=== PATIENT | male | born 1975 | race Caucasian/White ===

== ENCOUNTER 2024-10-04 06:55 | Emergency (ER) | payer BC, SELFPAY ==
--- OUTSIDE RECORDS SUMMARY | 2023-06-11 05:55 | XMS_ITS ---
Author Organization The [facility] in [place] Address [address] [place] [address] Care Team Providers Care Porcelain Enameling Supervisor Name Role Phone Adán Tapia Primary Care Provider [phone] ARTIE TAPIA Unavailable [phone] Encounters Encounter Location Date Provider Diagnosis [facility] [address] [facility] [place] [address] 06/11/2023 ARTIE TAPIA Plan Of Treatment No Information Progress Notes * Letha GRIFFINhDOB: 7 (48 yo M)Acc No.[id number]:06/11/2023 Patient: Jayson RAY :1975 A ge:48 Y S ex:Male Address:[address] [address] * true * Date: Generated for Tonya barlow/Emerita/eTransmitting on: 0 10/04/2024 07:15 AM EDT
--- OUTSIDE RECORDS SUMMARY | 2023-11-12 04:30 | XMS_ITS ---
Author Organization The [facility] in [place] Address [address] [place] [address] Care Team Providers Care Finishing And Shipping Supervisor Name Role Phone Adán Germain Primary Care Provider [phone] REASON FOR VISIT Annual Encounters Encounter Location Date Provider Diagnosis [facility] [address] [facility] [place] [address] 11/12/2023 Adán Germain Plan Of Treatment No Information Progress Notes * Letha JUDDhDOB: 7 (49 yo M)Acc No.[id number]:11/12/2023 UNLOCKED PROGRESS NOTE Progress Note Patient: Jayson RAY Provider: Geraldo Germain MD (TTC) :1975 A ge:48 Y S ex:Male Date:11/12/2023 [address] Subjective: * Chief Complaints: * 1 . Annual. * Medical History: Objective: * Vitals: Assessment: Plan: * Treatment: * * Electronic signature of Adán Germain MD, [id number] on 10/04/2024 at 07:14 AM EDT Sign off status: Pending Visit Status: N /S N/C (No Show/No Charge) * Provider: Geraldo Germain MD (TTC) Date: 0 11/12/2023 Generated for Printi ng/Faxing/eTransmitting on: 10/04/2024 07:14 AM EDT
--- OUTSIDE RECORDS SUMMARY | 2024-06-06 11:17 | XMS_ITS ---
Author Organization The [facility] in [place] Address [address] [place] [address] Care Team Providers Care Supervisor Ore Dressing Name Role Phone Adán Germain Primary Care Provider REASON FOR VISIT advair refill Medications Medication SIG (Take, Route, Frequency, Duration) Notes Start Date End Date Status Advair Diskus 250-50 MCG/ACT 1 puff Inhalation Twice a day for 90 days 06/08/2023 Active Encounters Encounter Location Date Provider Diagnosis [facility] [address] [facility] [place] [address] 06/06/2024 Adán Jessa Plan Of Treatment Medication Medication Name Sig Start Date Stop Date Notes Advair Diskus 250-50 MCG/ACT 1 puff Inha lation Twice a day for 90 days 06/08/2023 Progress Notes * Letha GRIFFINhDOB: 7 (49 yo M)Acc No.[id number]:06/06/2024 Patient: Refugio JAIMEMarcos SEARSneth :1975 A ge:49 Y S ex:Male Address:[address] [place] [address] * Refills Refill Advair Diskus Aerosol Powder Breath Activated, 250-50 MCG/ACT, Inhalation, 3, 1 puff, Twice a day, 90 days, Refills=3 * true * Date: Generated for Printi ng/Faxing/eTransmitting on: 0 10/04/2024 07:14 AM EDT
[2024-10-04 07:04] VITALS: BP 156/100; PULSE 64; TEMP 36.8; O2SAT 99; BMI 29.8
--- OUTSIDE RECORDS SUMMARY | 2024-10-04 07:15 | XMS_ITS | Clinical Summary ---
Author Organization [facility] Address [address] [place], [place] [address] Care Team Providers Care Caster Investment Casting Name Role Phone Ubaldo Germain MD Primary Care Provider [phone] Allergies No known active allergies Medications alprazolam(XANA X 0.25 MG TAB) Take one(1) tablet daily. 0 02/22/2009 Active fluticasone/sofya meterol(ADVAIR DISKUS 250 MCG-50 MCG/DOSE FOR INHALATION) once daily 0 02/22/2009 Ac tive ALBUTEROL 90 MCG/ACTUATION AEROSOL INHALER rescue inhaler - rare use 0 02/22/2009 Active Social History Tobacco Use Types Packs/Day Years Used Date Smoking Tobacco: Never Assessed Sex and Gender Information Value Date Recorded Sex Assigned at Not on file Legal Sex Male 8:26 AM EST Gender Identity Not on file Sexual Orientation Not on file Last Filed Vital Signs Vital Sign Reading Time Taken Comments Blood Pressure 97/45 02/27/2009 10:47 AM EST Pulse 63 02/27/2009 10:47 AM EST Temperature - - Respiratory Rate 14 02/27/2009 10:4 7 AM EST Oxygen Saturation 100% 02/27/2009 10: 47 AM EST Inhaled Oxygen Concentration - - Weight 83.9 kg (184 lb 15.5 oz) 02/27/2009 6:55 AM EST Height 170.2 cm (5' 7 ) 02/22/2009 11:0 0 AM EST Body Mass Index 28.97 02/22/2009 11:00 AM EST Plan of Treatment Health Maintenance Due Date Last Done Comments Anxiety Screening 1995 Depression Screening 1995 HIV Screening 1995 Hepatitis C Screening 1995 DTaP,Tdap,Td Vaccine (1 - Tdap) 01/16/1996 Hepatitis B Vaccine (1 of 3 - 19+ 3-dose series) 01/15 Lipid Screening 01/16/2012 CT Colonography 2022 Cologuard (FIT-DNA) 2022 Colonoscopy 2022 Colorectal Cancer Screening 2022 Diabetes Screening 2022 Fecal Occult Blood 2022 Sigmoidoscopy 2022 Influenza Vaccine (#1) 2024 Medical Devices Implanted Type Area Lining Cleaner Device Identifier Shelf Expiration Date Model / Serial / Lot Lens Iol 1pc Lorena Sn60at 22.5 - [id number] Implanted:Qty : 1 on 02/27/2009 at [facility] Intraocular Lens Left: Eye [employer] 11/16/2013 SN60AT 22.5 / [id number] / Care Teams Caster Investment Casting Relationship Specialty Start Date End Date Ubaldo Germain MD [address] [place] [address] PCP - General 02/27/09
--- OUTSIDE RECORDS SUMMARY | 2024-10-04 07:15 | XMS_ITS | Patient Health Record ---
Author Organization The [facility] in [place] Address [address] [place] [address] Care Team Providers Care Hardwood Finisher Name Role Phone JessaAdán Primary Care Provider Allergies No Known Allergies Reason For Referral No Information Medications Medication SIG (Take, Route, Frequency, Duration) Notes Start Date End Date Status Advair Diskus 250-50 MCG/ACT 1 puff Inhalation Twice a day for 90 days 06/08/2023 Active Tadalafil (PAH) 20 MG 1 tablet Orally Q 3 days max for 90 days 06/08/2023 Active Social History Tobacco Use: Social History Observation Description Date Details (start date - stop date) Current Smoker 02/16/2001 - NA Tobacco Use/Smoking Question Answer Notes Patient is a current smoker When did you start smoking? 02/16/2001 How often do you smoke cigarettes? every day How many cigarettes a day do you smoke? 6-10 How soon after you wake up do you smoke your fir st cigarette? after 60 minutes Are you interested in quitting? Not ready to soraya t Alcohol Screen (Audit-C) Question Answer Notes Did you have a drink contain ing alcohol in the past year? Yes How often did you have 6 or more drinks on one occasion in the past year? Monthly or less (1 point) How many drinks did you have on a typical day when you were drinking in the past year? 3 or 4 drinks (1 point) How often did you have a dri nk containing alcohol in the past year? Weekly (3 points) Points 5 Interpretation Positive Problems Problem Type SNOMED Code ICD Code Onset Dates Problem Status W/U Status Risk Notes Problem Asthma (399094148) Asthma (J45.909) Active confirmed Problem Insomnia (776193981) Insomnia (G47.00) Active confirmed Problem Erectile dysfunction (643773742) Erectile dysfunction (N52.9) Active confirmed Problem Alcohol abuse (62316865) Alcohol abuse (F10.10) Active confirmed Problem Well adult (282387581) Well adult (Z00.00) Active confirmed Problem Seasonal allergic rhinitis (757800060) Seasonal rhinitis (J30.2) Active confirmed Problem Overweight (924090759) Over weight (E66.3) Active confirmed Problem Closed fracture of clavicle (87966025) Fracture of clavicle, left, closed (S42.002A) Active confirmed Encounters Encounter Location Date Provider Diagnosis [facility] [address] [place] [address] 06/06/2024 Adán Germain Plan Of Treatment No Information Insurance Providers Payer Name Payer Address Payer Phone Subscriber Number Group Number Insured Name Patient Relationship to Insured Coverage Start Date Coverage End Date [employer] PPO PLUS LOCAL PLAN [address] [place] [phone] [id number] Jayson Griffin Self - patient is the insured Medical (General) History Medical History History ICD Code Over weight E66.3 Fracture of clavicle, left, closed S42.0 02A Erectile dysfunction N52.9 Insomnia G47.00 Alcohol abuse F10.10 Asthma J45.909 Seasonal rhinitis J30.2 fracture nasal bone Surgical History Surgery Date(Month/Year) internal fixation left clavical 09/2019 Right leg surgery
--- OUTSIDE RECORDS SUMMARY | 2024-10-04 07:15 | XMS_ITS | Clinical Summary ---
Author Organization [facility] Address [address] [place] [address] Care Team Providers Care Legal Contracts Specialist Name Role Phone Unavailable Primary Care Provider Unavailabl e Social History Tobacco Use Types Packs/Day Years Used Date Smoking Tobacco: Never Assessed Sex and Gender Information Value Date Recorded Sex Assigned at Not on file Legal Sex Male 6:50 PM EDT Gender Identity Not on file Sexual Orientation Not on file Last Filed Vital Signs Vital Sign Reading Time Taken Comments Blood Pressure 136/82 03/15/2019 12:00 PM EST Pulse - - Temperature - - Respiratory Rate - - Oxygen Saturation - - Inhaled Oxygen Concentration - - Weight 81.6 kg (180 lb) 03/15/2019 12:00 PM EST Height 170.2 cm (5' 7 ) 03/15/2019 12:00 PM EST Body Mass Index 28.19 03/15/2019 12:00 PM EST Plan of Treatment Not on file Insurance [facility]
--- NOTE | 2024-10-04 07:24 | XR_ITS ---
The [address] [address] Patient Name: NAUN JUDD MRN: [id number] date: 1975 Sex: M Assigned Patient Location: ER Current Patient Location: ER Accession/Order Number: [id number] Exam Date: 10/04/2024 08:22 Report Date: 10/04/2024 08:25 At the request of: ALAN FARMER MD Procedure: XR hand LT min 3V XR hand LT min 3V 10/04/2024 7:41 AM SIGNS AND SYMPTOMS: metal suspected at 2 Metacarpo phalangeal joint PROTOCOL: Frontal, lateral, and oblique radiographs of the left hand COMPARISON: None FINDINGS: Periarticular calcification is noted along the distal interphalangeal joint of the left second digit. Mild soft tissue swelling is noted in the second. There is mild narrowing of the distal interphalangeal joints greatest at the second digit. There is an 8 mm linear radiodense foreign body along the dorsal aspect of the head of the second metacarpal. There is evidence of a remote ulnar styloid fracture. XR/XR hand LT min 3V IMPRESSION: There is an 8 mm linear radiodense foreign body along the dorsal aspect of the head of the second metacarpal. Mild soft tissue swelling is noted in the second digit. Impression dictated by: Robby Mancini M.D. 10/04/2024 8:25 AM Dictation Location: [place] [address] Electronically authenticated by: [id number] Y Date: 10/04/2024 08:25
--- NOTE | 2024-10-04 08:59 | XR_ITS ---
The [address] [address] Patient Name: NAUN JUDD MRN: [id number] date: 1975 Sex: M Assigned Patient Location: ER Current Patient Location: ER Accession/Order Number: [id number] Exam Date: 10/04/2024 09:47 Report Date: 10/04/2024 09:48 At the request of: ALAN FARMER MD Procedure: XR hand LT 2V XR hand LT 2V 10/04/2024 9:28 AM SIGNS AND SYMPTOMS: ^psot foreign body removal PROTOCOL: Frontal and lateral radiographs of the left hand COMPARISON: 10/04/2024 FINDINGS: There has been interval removal of a linear radiodense foreign body along the dorsal aspect of the head of the second metacarpal. There is soft tissue swelling in the second digit. Similar degenerative changes are noted in the distal interphalangeal joints. No acute bony injury. XR/XR hand LT 2V IMPRESSION: There has been interval removal of a linear radiodense foreign body along the dorsal aspect of the head of the second metacarpal. Impression dictated by: Robby Mancini M.D. 10/04/2024 9:48 AM Dictation Location: [place] [address] Electronically authenticated by: [id number] Y Date: 10/04/2024 09:48
[2024-10-04] MEDS: LIDOCAINE HCL 1% 100 MG/10 ML MDV INJ (09:05)
[2024-10-04] MEDS: DIPHTH,PERTUSS(ACELL),TET VAC 0.5 ML SYRINGE IM (09:06)
--- NOTE | 2024-10-04 09:31 | ED.GENADUL1 ---
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 Patient tetanus booster is more than 5 years old and he did try to get the foreign body out by needle and it did not help Related Data Previous Rx's ?Medication ?Instructions ?Recorded doxycycline hyclate 100 mg tablet 100 mg PO BID 7 days #14 tabs 10/04/24 Allergies Allergy/AdvReac Type Severity Reaction Status Date / Time No Known Drug Allergies Allergy Verified 10/04/24 07:04 Opioid HPI Opioid Management Most Recent Opioid Data: Last Pain Scale 6 Today, 07:09 Review of Systems ROS Status of ROS 10 or more systems reviewed and unremarkable except as noted in history and below PFSH PFSH Social History Little interest or pleasure in doing things: not at all Feeling down, depressed, or hopeless: not at all Exam Narrative Exam Narrative: Nurses notes and vital signs reviewed and patient is not hypoxic. General: Well-appearing and in no apparent distress. Skin: Warm, dry, no pallor noted. No rash. Left hand examination: The patient has swelling in the area and mild erythema in the left hand mostly at the metacarpophalangeal joint of the second finger and there is a swelling in the area that is spreading to the rest of the dorsal aspect of the hand No vascular injury detected no obvious infection at the moment although there is inflammation Constitutional Vital Signs, click to edit/add: Last Vital Signs Temp 98.2 F 10/04/24 07:04 Pulse 64 10/04/24 07:04 Resp 20 10/04/24 07:04 BP 156/100 H 10/04/24 07:04 Pulse Ox 99 10/04/24 07:04 O2 Del Method Room Air 10/04/24 07:04 Course Vital Signs Vital signs: Vital Signs Temperature 98.2 F 10/04/24 07:04 Pulse Rate 64 10/04/24 07:04 Respiratory Rate 20 10/04/24 07:04 Blood Pressure 156/100 H 10/04/24 07:04 Pulse Oximetry 99 10/04/24 07:04 Oxygen Delivery Method Room Air 10/04/24 07:04 Temperature 98.2 F 10/04/24 07:04 Pulse Rate 64 10/04/24 07:04 Respiratory Rate 20 10/04/24 07:04 Blood Pressure 156/100 H 10/04/24 07:04 Pulse Oximetry 99 10/04/24 07:04 Oxygen Delivery Method Room Air 10/04/24 07:04 Medical Decision Making MDM Narrative Medical decision making narrative: After taking x-ray initially it did show that the patient have a almost 8 mm foreign body After using the ultrasound I was able to locate the foreign body I was able after infiltrating the area with almost 2 cc of 1% lidocaine with no epinephrine and using the ultrasound I was able to open almost longitudinal 2 mm opening just above the foreign body and I was able to flush it out After that sutures placed on the opening 2 stitches and 5-0 Prolene suture line used The patient to remove the stitches after 5 to 7 days also was instructed about monitoring symptoms specially with the high risk of infection due to the fact that it was foreign body for prolonged time and he was provided with a tetanus booster The patient discharged home with doxycycline prescription for the next 7 days The patient is to follow up with primary care physician in next 2-3 days or to return to the emergency department should any of the signs or symptoms worsen or new symptoms develop. The patient agrees with the following Diagnosis and Treatment plan and the patient will be discharged home. Discharge Plan Discharge Chief Complaint: Skin/Abscess/Foreign Body Clinical Impression: Foreign body hand, Hand swelling Patient Disposition: Home, Self-Care Time of Disposition Decision: 10:04 Condition: Good Mode of Transportation: Private Vehicle Prescriptions / Home Meds: New doxycycline hyclate 100 mg tablet 100 mg PO BID 7 Days Qty: 14 0RF Print Language: Syriac Instructions: Care For Your Stitches (DC), Laceration (ED) Additional Instructions: Stitches to be removed after 5 to 7 days Referrals: Ubaldo Germain MD [Primary Care Provider, Family Practice] - 1 week Discharge Date/Time: 10/04/24 10:10
== END 2024-10-04 10:10 | disposition home or self-care (01) ==
PROVIDERS: Emergency Provider Emergency Medicine; PCP Family Medicine
DX: S60.552A Superficial foreign body of left hand, initial encounter (principal); Z23 Encounter for immunization; M25.442 Effusion, left hand
CPT/HCPCS: 10120; 73120; 73130; 90471; 99284

== ENCOUNTER 2024-10-25 09:41 | Outpatient (OUT) | payer BC, SELFPAY ==
--- OUTSIDE RECORDS SUMMARY | 2023-06-11 05:55 | XMS_ITS ---
Author Organization The [facility] in [place] Address [address] [place] [address] Care Team Providers Care Push Connector Assembler Name Role Phone Adán Tapia Primary Care Provider ARTIE TAPIA Unavailable [phone] Encounters Encounter Location Date Provider Diagnosis [facility] [address] [place] [address] 06/11/2023 ARTIE TAPIA Plan Of Treatment No Information Progress Notes * Letha GRIFFINhDOB: 7 (48 yo M)Acc No.[id number]:06/11/2023 Patient: Jayson RAY :1975 A ge:48 Y S ex:Male Address:[address] [address] * true * Date: Generated for Tonya barlow/Emerita/eTransmitting on: 0 10/25/2024 09:45 AM EDT
--- OUTSIDE RECORDS SUMMARY | 2023-11-12 04:30 | XMS_ITS ---
Author Organization The [facility] in [place] Address [address] [place] [address] Care Team Providers Care Maltster Name Role Phone Adán Germain Primary Care Provider [phone] REASON FOR VISIT Annual Encounters Encounter Location Date Provider Diagnosis [facility] [address] [facility] [place] [address] 11/12/2023 Adán Germain Plan Of Treatment No Information Progress Notes * Letha JUDDhDOB: 7 (49 yo M)Acc No.[id number]:11/12/2023 UNLOCKED PROGRESS NOTE Progress Note Patient: Jayson RAY Provider: Geraldo Germain MD (TTC) :1975 A ge:48 Y S ex:Male Date:11/12/2023 [address] Subjective: * Chief Complaints: * 1 . Annual. * Medical History: Objective: * Vitals: Assessment: Plan: * Treatment: * * Electronic signature of Adán Germain MD, [id number] on 10/25/2024 at 09:44 AM EDT Sign off status: Pending Visit Status: N /S N/C (No Show/No Charge) * Provider: Geraldo Germain MD (TTC) Date: 0 11/12/2023 Generated for Printi ng/Faxing/eTransmitting on: 10/25/2024 09:44 AM EDT
--- OUTSIDE RECORDS SUMMARY | 2024-06-06 11:17 | XMS_ITS ---
Author Organization The [facility] in [place] Address [address] [place] [address] Care Team Providers Care Patient Office Rep Name Role Phone Adán Germain Primary Care Provider REASON FOR VISIT advair refill Medications Medication SIG (Take, Route, Frequency, Duration) Notes Start Date End Date Status Advair Diskus 250-50 MCG/ACT 1 puff Inhalation Twice a day for 90 days 06/08/2023 Active Encounters Encounter Location Date Provider Diagnosis [facility] [address] [facility] [place] [address] 06/06/2024 Adán Jessa Plan Of Treatment Medication Medication Name Sig Start Date Stop Date Notes Advair Diskus 250-50 MCG/ACT 1 puff Inha lation Twice a day for 90 days 06/08/2023 Progress Notes * Letha GRIFFINhDOB: 7 (49 yo M)Acc No.[id number]:06/06/2024 Patient: Refugio JAIMEMarcos SEARSneth :1975 A ge:49 Y S ex:Male Address:[address] [place] [address] * Refills Refill Advair Diskus Aerosol Powder Breath Activated, 250-50 MCG/ACT, Inhalation, 3, 1 puff, Twice a day, 90 days, Refills=3 * true * Date: Generated for Printi ng/Faxing/eTransmitting on: 0 10/25/2024 09:44 AM EDT
--- OUTSIDE RECORDS SUMMARY | 2024-10-04 11:44 | XMS_ITS ---
Author Organization The [facility] in [place] Address [address] [place] [address] Care Team Providers Care Molder Name Role Phone Adán Germain Primary Care Provider REASON FOR VISIT ER Encounters Encounter Location Date Provider Diagnosis [facility] [address] [place] [facility] [place] [address] 10/04/2024 Adán Germain Plan Of Treatment No Information Progress Notes * Letha GRIFFINhDOB: 7 (49 yo M)Acc No.[id number]:10/04/2024 Patient: Marcos RAYneth :1975 A ge:49 Y S ex:Male Address:[address] [place] [address] * true * Date: Generated for Kermiti yen/Jaimeg/eTransmitting on: 0 10/25/2024 09:44 AM EDT
--- OUTSIDE RECORDS SUMMARY | 2024-10-10 04:45 | XMS_ITS ---
Author Organization [facility] [place] Address [address] [place] [address] Care Team Providers Care Manager Intel Name Role Phone Adán Germain Primary Care Provider Allergies No Known Allergies REASON FOR VISIT Presents to office alone for yearly wellness, Needs suture removed from left hand. Placed by ER on 10/04 Medications Medication SIG (Take, Route, Frequency, Duration) Notes Start Date End Date Status Tadalafil (PAH) 20 MG 1 tablet Orally Q 3 days max for 90 days 06/08/2023 Active Advair Diskus 250-50 MCG/ACT 1 puff Inhalation Twice a day for 90 days 06/08/2023 Active Social History [...] in quitting? Not ready to soraya t AUDIT-C (Standard) Question Answer Notes Did you have a drink contain ing alcohol in the past year? Yes How often did you have a dri nk containing alcohol in the past year? 2 to 4 times a month (2 points) How many drinks did you have on a typical day when you were drinking in the past year? 10 or more drinks (4 points) How often did you have six o r more drinks on one occasion in the past year? 2 to 4 times a month (2 points) Points 8 Interpretation Positive Vital Signs Weight 185.2 lbs 10/10/2024 Height 67 in 10/10/2024 Blood pressure systolic 136 mm Hg 10/11/19 Blood pressure diastolic 80 mm Hg 025 BMI 29 kg/m2 10/10/2024 Encounters Encounter Location Date Provider Diagnosis [facility] [address] [place] [address] 10/10/2024 Adán Germain Well adult Z00.00 an d Laceration of left hand without complication, excluding fingers, subsequent encounter S61.412D Assessments Encounter Date Diagnosis (ICD Code) Assessment Notes Treatment Notes Treatment Clinical Notes Section Notes 10/10/2024 Well adult (ICD-10 - Z00.00) 10/10/2024 Laceration of left hand without complication, excluding fingers, subsequent encounter (ICD-10 - S61.412D) Plan Of Treatment Medication Medication Name Sig Start Date Stop Date Notes Tadalafil (PAH) 20 MG 1 tablet Orally Q 3 days max for 90 days 06/08/2023 Advair Diskus 250-50 MCG/ACT 1 puff Inha lation Twice a day for 90 days 06/08/2023 Pending Test Test Name Order Date HEMOGLOBIN A1C (GLYCO) 10/10/2024 LIPID PANEL (CHOL/TRIG/HDL/LDL) 10/11/19 STOOL OCCULT BLOOD 10/10/2024 PSA, SCREENING 10/10/2024 CMP (COMP MET BEVERLY) w/eGFR CKD-EPI 2024 CBC WITH DIFF 10/10/2024 Procedure Notes * Category Sub-Category Detail Notes Suture Removal Procedure Left Right Suture Removal 1 suture removed and accounted for. Well approximated and no signs of infection Progress Notes * Letha GRIFFINhDOB: 7 (49 yo M)Acc No.[id number]:10/10/2024 Progress Note Patient: Jayson RAY Provider: Geraldo Germain ([facility])MD :1975 A ge:49 Y S ex:Male Date:10/10/2024 Address:[address] [place] [address] [id number] Check In:08:30 AM ESTCheck O ut:09:23 AM EST Subjective: * Chief Complaints: * P resents to office alone for yearly wellnessNeeds suture removed from left hand. Placed by ER on 10/04 * HPI: D epression Screening: PHQ-2 (2015 Edition) L ittle interest or pleasure in doing things??Not at all F eeling down, depressed, or hopeless? N ot at all T otal Score 0 in er hand laceration - healiubg well contact derm nogt bad with asmant - on inhalers. * ROS: E ENT: hearing changes d enies. v isual changes d enies.?non-healing mouth sores d enies. s wollen glands or neck lumps d enies. h oarseness d enies. s ore throat d enies. d ifficulty swallowing d enies. n ose bleeds d enies. n camden congestion d enies. e ar ache d enies. e ar discharge?denies. r inging in ears d enies. l ight sensitivity d enies. e ye pain d enies. b lurring d enies. e ye irritation d enies. d ouble vision d enies.?vision loss d enies. G eneral/Constitutional: Sweats: D enies. F atigue d enies. S leep problems d enies. A norexia d enies. M alaise d enies. W eight loss d enies.?Fatigue or Weakness d enies. F ever or Chills d enies. C ardiovascular: Shortness of Breath w/lying flat d enies. L ightheadedness/dizziness d enies. C hest tightness/ heavy pressure d enies. S welling of legs, ankles, or feet d enies. W aking up with shortness of breath d enies. C hest pain denies. P alpitations d enies. W eight gain d enies. R espiratory: Chronic or frequent cough d enies. C oughing up blood?denies. D ifficulty breathing d enies. P roductive cough d enies. S noring?denies. S hortness of breath that awakens from sleep (PND) d enies. C hest pain d enies. S putum production d enies. W heezing d enies. M usculoskeletal: Joint pain d enies. J oint Fluid d enies. B ack pain d enies. K nee pain d enies. N marbin pain d enies. J oint Stiffness d enies. M uscle cramps d enies. W eakness of muscles d enies. A rthritis d enies. M uscle aches d enies. P ain in shoulder(s) d enies. S wollen joints d enies. * Active Problem List E66.3 Over weight Modified On:11/05/2022 Status:confirmed S42.002A Fracture of clavicle , left, closed Modified On:11/05/2022 Status:confirmed N52.9 Erectile dysfunction Modified On:11/05/2022 Status:confirmed G47.00 Insomnia Modified On:11/05/2022 Status:confirmed F10.10 Alcohol abuse Modified On:11/05/2022 Status:confirmed J45.909 Asthma Modified On:11/05/2022 Status:confirmed J30.2 Seasonal rhinitis Modified On:11/05/2022 Status:confirmed Z00.00 Well adult Modified On:11/11/2022 Status:confirmed * Medical History: * Surgical History: i nternal fixation left clavical 09/2019Right leg surgery * Hospitalization/Major Diagno stic Procedure: * Family History: F ather: alive. M other: alive. * Social History: T obacco Use: T obacco Use/Smoking P atient is a c urrent smoker W hen did you start smoking? 0 02/16/2001 H ow often do you smoke cigarettes? e very day H ow many cigarettes a day do you smoke? 6 -10 H ow soon after you wake up do you smoke your first cigarette? a fter 60 minutes A re you interested in quitting? N ot ready to quit D rug/Alcohol: A DULCE-C (Standard) D id you have a drink containing alcohol in the past year? Y es H ow often did you have a drink containing alcohol in the past year? 2 to 4 times a month (2 points) H ow many drinks did you have on a typical day when you were drinking in the past year? 1 0 or more drinks (4 points) H ow often did you have six or more drinks on one occasion in the past year? 2 to 4 times a month (2 points) P oints 8 I nterpretation P ositive * Medications: T akingAdvair Diskus(Fluticasone-Salmeterol) 250-50 MCG/ACT Aerosol Powder Breath Activated 1 puff Inhalation Twice a day Tadalafil (PAH) 20 MG Tablet 1 tablet Orally Q 3 days max Medication List reviewed and reconciled with the patientTaking Advair Diskus(Fluticasone-Salmeterol) 250-50 MCG/ACT Aerosol Powder Breath Activated 1 puff Inhalation Twice a day Taking Tadalafil (PAH) 20 MG Tablet 1 tablet Orally Q 3 days max Medication List reviewed and reconciled with the patient * Allergies: N .K.D.A.no[Allergies Verified] Objective: * Vitals: W t:185.2lbs, Ht: 67 in, BP:136/80mm Hg, BMI:29Index, Ht-cm: 170.18 cm, Wt-k.01 kg. * Examination: P hysical Exam: GENERAL: w ell developed, well nourished, in no acute distress. HEAD: n ormocephalic/atraumatic. EYES: p upils equal, round and reactive to light, conjunctivae and sclerae normal. EARS: n o deformity or lesion of external ear, canals and TM appear normal bilaterally, TM's intact, not inflamed with normal light reflex, hearing grossly normal to conversational speech. NOSE: n o deformity, discharge, inflammation, or lesions.? MOUTH: m ucous membranes moist, normal oropharynx and posterior pharynx without lesions or exudates, tongue normal, dentition normal. NECK: n marbin supple, no masses or palpable cervical nodes, trachea midline, thyroid without nodules, masses, tenderness, or enlargement. CHEST: n o chest wall deformity, no chest wall tenderness.? LUNGS: n ormal respiratory effort and clear to auscultation, no wheezes, rales, or rhonchi, good air exchange. CARDIO: r egular rate and rhythm, normal S1 and S2, nor murmur, rub, or gallop. PULSES: n ormal capillary refill. ABDOMEN: s oft, non-distended, non-tender, no masses. MUSCULOSKELETAL: n o deformity or scoliosis noted, normal range of motion, joints normal, no erythema, edema, effusion, or ecchymosis. EXTREMITY: n o clubbing, cyanosis, edema, or deformity with normal ROM in both upper and lower bilateral extremities. NEUROLOGIC: g rossly normal. SKIN: n o rashes, ulcerations, or suspicious lesions. LYMPH NODES: n o cervical adenopathy, nodes normal. MENTAL STATUS: a lert and oriented x3, normal mood and affect. Assessment: * Assessment: 1. W ell adult - Z00.00 (Primary) 2 . L aceration of left hand without complication, excluding fingers, subsequent encounter - S61.412D Plan: * Treatment: * Procedures: S uture Removal: Procedure _ . Left _ ____. Right _ . Suture Removal 1 suture r emoved and accounted for. Well approximated and no signs of infection. * Procedure Codes: 1 5853 REMOVAL SUTR/STAPL XREQ [id number] DIAST BP 80-89 MM [id number] SYST BP GE 130 - 139MM HG * Preventive Medicine: Screenings/Counseling: B DE ACTION PLAN Above Normal BMI Follow-up D ietary management education, guidance, and counseling See treatment section of progress note for complete details of management plan. * * Sign off status: Completed Visit Status: C HK (Check Out) true * Provider: Geraldo Germain ([facility])MD Date: 0 10/10/2024 Generated for Kermiti yen/Emerita/eTransmitting on: 0 10/25/2024 09:44 AM EDT History and Physical Notes * HPI (History of Present Illness) Category Sub-Category Detail Notes Category Not es Depression Screening PHQ-2 (2015 Edition) Little interest or pleasure in doing things?: Not at all in er hand laceration - healiubg well contact derm nogt bad with asmant - on inhalers Feeling down, depressed, or hopeless?: N ot at all Total Score: 0 Examination Category Sub-Category Detail Notes Category Not es Physical Exam GENERAL: well developed, well nourished, in no acute distress HEAD: normocephalic/atraum atic EYES: pupils equal, round and reactive to light, conjunctivae and sclerae normal EARS: no deformity or lesi on of external ear, canals and TM appear normal bilaterally, TM's intact, not inflamed with normal light reflex, hearing grossly normal to conversational speech NOSE: no deformity, discha rge, inflammation, or lesions MOUTH: mucous membranes elsi st, normal oropharynx and posterior pharynx without lesions or exudates, tongue normal, dentition normal NECK: neck supple, no mass es or palpable cervical nodes, trachea midline, thyroid without nodules, masses, tenderness, or enlargement CHEST: no chest wall deform ity, no chest wall tenderness LUNGS: normal respiratory e ffort and clear to auscultation, no wheezes, rales, or rhonchi, good air exchange CARDIO: regular rate and rhy thm, normal S1 and S2, nor murmur, rub, or gallop PULSES: normal capillary ref ill ABDOMEN: soft, non-distended, non-tender, no masses RECTAL: MUSCULOSKELETAL: no deformity or scol iosis noted, normal range of motion, joints normal, no erythema, edema, effusion, or ecchymosis EXTREMITY: no clubbing, cyanosi s, edema, or deformity with normal ROM in both upper and lower bilateral extremities NEUROLOGIC: grossly normal SKIN: no rashes, ulceratio ns, or suspicious lesions LYMPH NODES: no cervical adenopat hy, nodes normal MENTAL STATUS: alert and oriented x 3, normal mood and affect
--- OUTSIDE RECORDS SUMMARY | 2024-10-25 09:45 | XMS_ITS | Patient Health Record ---
Author Organization [facility] [place] Address [address] [place] [address] Care Team Providers Care Accounts Payables Clerk Name Role Phone Adán Germain Primary Care Provider Allergies No Known Allergies Results Component Value Reference Range Notes XR hand LT 2V Reviewed date:10/04/2024 03:52:07 PM Interpretation: Performing Lab: Notes/Report: Source Facility: [place] [address] XRay Report Signed Patient: JAYSON GRIFFIN MR#: [id number] : 1975 Acct:[id number] Age/Sex: 49 / M ADM Date: 10/04/24 Loc: ER Attending Dr: Ordering Physician: Alan Farmer Date of Service: 10/04/24 Procedure(s): XR hand LT 2V Accession Number(s): [id number] cc: Ubaldo Germain M.D.; Alan Farmer [place] [address] Patient Name: JAYSON GRIFFIN MRN: [id number] date: 1975 Sex: M Assigned Patient Location: ER Current Patient Location: ER Accession/Order Number: [id number] Exam Date: 10/04/2024 09:47 Report Date: 10/04/2024 09:48 At the request of: ALAN FARMER MD Procedure: XR hand LT 2V XR hand LT 2V 10/04/2024 9:28 AM SIGNS AND SYMPTOMS: psot foreign body removal PROTOCOL: Frontal and lateral radiographs of the left hand COMPARISON: 10/04/2024 FINDINGS: There has been interval removal of a linear radiodense foreign body along the dorsal aspect of the head of the second metacarpal. There is soft tissue swelling in the second digit. Similar degenerative changes are noted in the distal interphalangeal joints. No acute bony injury. XR/XR hand LT 2V IMPRESSION: There has been interval removal of a linear radiodense foreign body along the dorsal aspect of the head of the second metacarpal. Impression dictated by: Robby Mancini M.D. 10/04/2024 9:48 AM Dictation Location: [place] [address] Electronically authenticated by: [id number] Y Date: 10/04/2024 09:48 Dictated By: Robby Mancini M.D. Signed By: 10/04/2451 DD/ 7 TD/TT: Ct Mri Technologist: [place] [address] XRay Report Signed Patient: DINESH GRIFFIN MR#: [id number] : 1975 Acct:[id number] Age/Sex: 49 / M ADM Date: 10/04/24 Loc: ER Attending Dr: Ordering Physician: Alan Farmer Date of Service: 10/04/24 Procedure(s): XR hand LT 2V Accession Number(s): [id number] cc: Ubaldo Germain M.D. ; Alan Farmer [place] [id number] Patient Name: JAYSON GRIFFIN MRN: [id number] date: 1975 Sex: M Assigned Patient Location: ER Current Patient Location: ER Accession/Order Numb er: [id number] Exam Date: 10/04/2024 09:47 Report Date: 10/04/2024 09:48 At the request of: ALAN FARMER MD Procedure: XR hand LT 2V XR hand LT 2V 10/04/2024 9:28 AM SIGNS AND SYMPTOMS: psot foreign body removal PROTOCOL: Frontal an d lateral radiographs of the left hand COMPARISON: 10/04/2024 FINDINGS: There has been inter compa removal of a linear radiodense foreign body along the dorsal aspect of the head of the second metacarpal. There is soft tissue swelling in the seco nd digit. Similar degenerative changes are noted in the distal interphalange al joints. No acute bony injury. X R/XR hand LT 2V IMPRESSION: There has been inter compa removal of a linear radiodense foreign body along the dorsal aspect of the head of the second metacarpal. Impression dictated by: Robby Mancini M.D. 10/04/2024 9:48 AM Dictation Location: [place] [address] Electronically authe nticated by: [id number] Y Date: 10/04/2024 09:48 Dictated By: Robby Mancini M.D. Signed By: 10/04/24 0951 DD/ 0948 TD/TT: Ct Mri Technologist: XR HAND LT MIN 3V Reviewed date:10/04/2024 03:52:07 PM Interpretation: Performing Lab: Notes/Report: Source Facility: [place] [address] XRay Report Signed Patient: JAYSON GRIFFIN MR#: [id number] : 1975 Acct:[id number] Age/Sex: 49 / M ADM Date: 10/04/24 Loc: ER Attending Dr: Ordering Physician: Alan Farmer Date of Service: 10/04/24 Procedure(s): XR hand LT min 3V Accession Number(s): [id number] cc: Ubaldo Germain M.D.; Alan Farmer [place] [address] Patient Name: JAYSON GRIFFIN MRN: [id number] date: 1975 Sex: M Assigned Patient Location: ER Current Patient Location: ER Accession/Order Number: [id number] Exam Date: 10/04/2024 08:22 Report Date: 10/04/2024 08:25 At the request of: ALAN FARMER MD Procedure: XR hand LT min 3V XR hand LT min 3V 10/04/2024 7:41 AM SIGNS AND SYMPTOMS: metal suspected at 2 Metacarpo phalangeal joint PROTOCOL: Frontal, lateral, and oblique radiographs of the left hand COMPARISON: None FINDINGS: Periarticular calcification is noted along the distal interphalangeal joint of the left second digit. Mild soft tissue swelling is noted in the second. There is mild narrowing of the distal interphalangeal joints greatest at the second digit. There is an 8 mm linear radiodense foreign body along the dorsal aspect of the head of the second metacarpal. There is evidence of a remote ulnar styloid fracture. XR/XR hand LT min 3V IMPRESSION: There is an 8 mm linear radiodense foreign body along the dorsal aspect of the head of the second metacarpal. Mild soft tissue swelling is noted in the second digit. Impression dictated by: Robby Mancini M.D. 10/04/2024 8:25 AM Dictation Location: [place] [address] Electronically authenticated by: [id number] Y Date: 10/04/2024 08:25 Dictated By: Robby Mancini M.D. Signed By: 10/04/24826 DD/ 4 TD/TT: Ct Mri Technologist: [place] [address] XRay Report Signed Patient: DINESH GRIFFIN MR#: [id number] : 1975 Acct:[id number] Age/Sex: 49 / M ADM Date: 10/04/24 Loc: ER Attending Dr: Ordering Physician: Alan Farmer Date of Service: 10/04/24 Procedure(s): XR hand LT min 3V Accession Number(s): [id number] cc: Ubaldo Germain M.D. ; Alan Farmer [address] [address] Patient Name: JAYSON GRIFFIN MRN: [id number] date: 1975 Sex: M Assigned Patient Location: ER Current Patient Location: ER Accession/Order Numb er: [id number] Exam Date: 10/04/2024 08:22 Report Date: 10/04/2024 08:25 At the request of: ALAN FARMER MD Procedure: XR hand LT min 3V XR hand LT min 3V 7:41 AM SIGNS AND SYMPTOMS: metal suspected at 2 Metacarpo phalangeal joint PROTOCOL: Frontal, l ateral, and oblique radiographs of the left hand COMPARISON: None FINDINGS: Periarticular calcif ication is noted along the distal interphalangeal joint of the left second digi t. Mild soft tissue swelling is noted in the second. There is mild narrow ing of the distal interphalangeal joints greatest at the second digit. There is an 8 mm linear radiodense foreign body along the dorsal aspect of the head of the second metacarpal. There is evidence of a remote ulnar styloid fracture. X R/XR hand LT min 3V IMPRESSION: There is an 8 mm hussein ear radiodense foreign body along the dorsal aspect of the head of the second metacarpal. Mild soft tissue swe lling is noted in the second digit. Impression dictated by: Robby Mancini M.D. 10/04/2024 8:25 AM Dictation Location: [place] [address] Electronically authe nticated by: [id number] Y Date: 10/04/2024 08:25 Dictated By: Robby Mancini M.D. Signed By: 10/04/24826 DD/ 4 TD/TT: Ct Mri Technologist: Reason For Referral No Information Medications Medication [...] Weekly (3 points) Points 5 Interpretation Positive AUDIT-C (Standard) Question Answer Notes Did you [...] month (2 points) Points 8 Interpretation Positive Problems Problem Type SNOMED Code ICD Code Onset Dates Problem Status W/U Status Risk Notes Problem Asthma (095925408) Asthma (J45.909) Active confirmed Problem Insomnia (062300750) Insomnia (G47.00) Active confirmed Problem Erectile dysfunction (646685196) Erectile dysfunction (N52.9) Active confirmed Problem Alcohol abuse (27661114) Alcohol abuse (F10.10) Active confirmed Problem Well adult (491405619) Well adult (Z00.00) Active confirmed Problem Seasonal allergic rhinitis (189095795) Seasonal rhinitis (J30.2) Active confirmed Problem Overweight (481081581) Over weight (E66.3) Active confirmed Problem Closed fracture of clavicle (18213714) Fracture of clavicle, left, closed (S42.002A) Active confirmed Vital Signs Blood pressure diastolic 80 mm Hg 10/10/2024 Height 67 in 10/10/2024 Blood pressure systolic 136 mm Hg 10/10/2024 Weight 185.2 lbs 10/10/2024 BMI 29 kg/m2 10/10/2024 Encounters Encounter Location Date Provider Diagnosis [address] [address] 10/10/2024 Adán Germain Well adult Z00.00 an d Laceration of left hand without complication, excluding fingers, subsequent encounter S61.412D [address] [place] [address] 06/06/2024 Adán Germain [facility] [address] [place] [address] 10/04/2024 Adán Germain Assessments Encounter Date Diagnosis (ICD Code) Assessment Notes Treatment Notes Treatment Clinical Notes Section Notes 10/10/2024 Well adult (ICD-10 - Z00.00) 10/10/2024 Laceration of left hand without complication, excluding fingers, subsequent encounter (ICD-10 - S61.412D) Plan Of Treatment Pending Test Test Name Order Date HEMOGLOBIN A1C (GLYCO) 10/10/2024 LIPID PANEL (CHOL/TRIG/HDL/LDL) 10/11/19 STOOL OCCULT BLOOD 10/10/2024 PSA, SCREENING 10/10/2024 CMP (COMP MET BEVERLY) w/eGFR CKD-EPI 2024 CBC WITH DIFF 10/10/2024 Insurance Providers Payer Name Payer Address Payer Phone Subscriber Number Group Number Insured Name Patient Relationship to Insured Coverage Start Date Coverage End Date [employer] ACCESS PPO PLUS LOCAL PLAN [address] [place] [phone] [id number] Jayson Griffin Self - patient is the insured Medical (General) History Medical History History ICD Code Over weight E66.3 Fracture of clavicle, left, closed S42.0 02A Erectile dysfunction N52.9 Insomnia G47.00 Alcohol abuse F10.10 Asthma J45.909 Seasonal rhinitis J30.2 fracture nasal bone Surgical History Surgery Date(Month/Year) Right leg surgery internal fixation left clavical 09/2019
--- OUTSIDE RECORDS SUMMARY | 2024-10-25 09:45 | XMS_ITS | Clinical Summary ---
Author Organization [facility] Address [address] [place] [address] Care Team Providers Care Wash Mill Operator Name Role Phone Unavailable Primary Care Provider Unavailabl e Social History Tobacco Use Types Packs/Day Years Used Date Smoking Tobacco: Never Assessed Sex and Gender Information Value Date Recorded Sex Assigned at Not on file Legal Sex Male 12:28 AM EDT Gender Identity Not on file Sexual Orientation Not on file Last Filed Vital Signs Vital Sign Reading Time Taken Comments Blood Pressure - - Pulse - - Temperature - - Respiratory Rate - - Oxygen Saturation - - Inhaled Oxygen Concentration - - Weight 79.4 kg (175 lb) 11/16/2019 2:27 PM EDT Height 170.2 cm (5' 7 ) 11/16/2019 2:27 PM EDT Body Mass Index 27.41 11/16/2019 2:27 PM EDT Plan of Treatment Not on file
--- OUTSIDE RECORDS SUMMARY | 2024-10-25 09:45 | XMS_ITS | Clinical Summary ---
Author Organization [facility] Address [address] [place], [place] [address] Care Team Providers Care Mobile Health Vehicle Operator Name Role Phone Ubaldo Germain MD Primary Care Provider [phone] Allergies No known active allergies Medications alprazolam(XANA [...] (#1) 2024 Medical Devices Implanted Type Area Supervisor Partial Denture Department Device Identifier Shelf Expiration Date Model / Serial / Lot Lens Iol 1pc Lorena Sn60at 22.5 - [id number] Implanted:Qty : 1 on 02/27/2009 at [facility] Intraocular Lens Left: Eye [facility] 11/16/2013 SN60AT 22.5 / [id number] / Care Teams Mobile Health Vehicle Operator Relationship Specialty Start Date End Date Ubaldo Germain MD [address] [place] [address] PCP - General 02/27/09
[2024-10-25 10:16] LABS: Hematocrit 45.6 % (42.0-54.0); Hemoglobin 15.5 g/dL (14.0-18.0); Immature Granulocytes Abs Auto 0.03 10^3/uL (0.00-0.03); Immature Granulocytes Pct Auto 0.4 % (0.0-0.5); Lymphocytes Absolute Auto 2.9 10^3/uL (1.2-3.8); Mean Corpuscular HGB Conc 34.0 g/dL (29.9-35.2); Mean Corpuscular Hemoglobin 32.1 pg (25.9-34.0); Mean Corpuscular Volume 94.4 fL (80.0-94.0); Platelet Count 240 10^3/uL (150-450); Red Blood Count 4.83 10^6/uL (4.70-6.10); White Blood Count 8.1 10^3/uL (4.0-11.0)
[2024-10-25 10:33] LABS: Alanine Aminotransferase 31 U/L (16-63); Albumin Globulin Ratio 1.1; Albumin Level 3.9 g/dL (3.4-5.0); Alkaline Phosphatase 90 U/L (46-116); Anion Gap 12.7; Aspartate Amino Transferase 15 U/L (15-37); Blood Urea Nitrogen 11.0 mg/dL (7.0-18.0); Calcium 9.1 mg/dL (8.5-10.1); Carbon Dioxide 27.8 mmol/L (21.0-32.0); Chloride 104 mmol/L (98-107); Cholesterol 150 mg/dL (<=200); Estimated GFR (African America >60 (>=60 mL/min/1.73m^2); Estimated GFR (Non-African Ame >60 (>=60 mL/min/1.73m^2); Globulin 3.4 g/dL; Glucose 97 mg/dL (74-106); HDL Cholesterol 47 mg/dL (40-60); Potassium 4.5 mmol/L (3.5-5.1); Sodium 140 mmol/L (136-145); Total Protein 7.3 g/dL (6.4-8.2); Triglycerides 50 mg/dL (<=150); VLDL CHOLESTEROL 10.0 mg/dL
== END 2024-10-25 09:42 | disposition home or self-care (01) ==
LOC: LAB 09:42
PROVIDERS: PCP Family Medicine; Visit Provider Family Medicine
DX: E78.5 Hyperlipidemia, unspecified (principal); Z12.5 Encounter for screening for malignant neoplasm of prostate; R73.09 Other abnormal glucose; Z12.12 Encounter for screening for malignant neoplasm of rectum; R53.83 Other fatigue
CPT/HCPCS: 36415; 80053; 80061; 83036; 85025; G0103